=== PATIENT | male | born 1965 | race Caucasian/White ===

== ENCOUNTER 2022-05-11 08:19 | Day surgery (SDC) | payer BC ==
[~2022-05-11 08:19] MED LIST: LIDOCAINE 1% (10MG/ML) FOR IV START INTRADERMA PRN
[2022-05-11 08:58] VITALS: RESP 16; TEMP 98.1
[2022-05-11] MEDS: LACTATED RINGERS 1,000 ML IV SCH ×2 (09:05→09:16)
[2022-05-11] MEDS ORDERED: PROPOFOL 10 MG/ML 20 ML VIAL IV ONE (09:17)
[2022-05-11] MEDS ORDERED: LIDOCAINE 2% INJ 20 MG/ML (2 ML VIAL) ONE (09:17)
--- NOTE | 2022-05-11 09:22 | P.GSHP ---
History of Present Illness H&P Date: 05/11/22 Chief Complaint: Screening colonoscopy This a 56-year-old male presents today for screening colonoscopy. He denies a significant GI complaints Past Medical History Past Medical History: Osteoarthritis (OA) History of Any Multi-Drug Resistant Organisms: None Reported Past Surgical History: Orthopedic Surgery Additional Past Surgical History / Comment(s): left knee fx with hardware implants Past Anesthesia/Blood Transfusion Reactions: No Reported Reaction Smoking Status: Current every day smoker Medications and Allergies Home Medications Medication Instructions Recorded Confirmed Type Ibuprofen [Advil] 200 mg PO Q8HR PRN 05/09/22 05/09/22 History Allergies Allergy/AdvReac Type Severity Reaction Status Date / Time cephalexin [From Keflex] Allergy Rash/Hives Verified 05/11/22 08:52 Surgical - Exam Vital Signs Temp Pulse Resp BP Pulse Ox 98.1 F 61 16 191/94 98 05/11/22 08:57 05/11/22 08:57 05/11/22 08:57 05/11/22 08:57 05/11/22 08:57 - General well developed, well nourished, no distress - Eyes PERRL - ENT normal pinna - Neck no masses - Respiratory normal expansion - Cardiovascular Rhythm: regular - Abdomen Abdomen: soft, non tender Assessment and Plan Assessment: We'll perform screening colonoscopy
--- NOTE | 2022-05-11 09:37 | P.OP ---
Date of Procedure: 05/11/22 Preoperative Diagnosis: Screening colonoscopy Postoperative Diagnosis: Cecal polyp Procedure(s) Performed: Colonoscopy Anesthesia: MAC Surgeon: Gurmeet Hurtado Pathology: other (Polyp) Condition: stable Disposition: PACU Description of Procedure: The patient's placed on the endoscopy table in the lateral position. He received IV sedation. Digital rectal exam was performed. This revealed no abnormalities. The flexible colonoscope was then placed the patient's anus and passed throughout the entire colon. The ileocecal valve was visualized. The cecum was examined and there was a peduncular polyp. This is removed with snare. The remainder the ascending colon, transverse colon and descending colon appeared normal. The sigmoid colon and rectum appeared normal. Scope withdrawn for patient.
[2022-05-11] MEDS ORDERED: hydrALAZINE HCL 20 MG/ML 1 ML VIAL ONE (10:17)
[2022-05-11] MEDS: hydrALAZINE HCL 20 MG/ML 1 ML VIAL IVP ONE ×2 (10:20→10:31)
[2022-05-11 10:49] VITALS: BP 163/80; PULSE 65
== END 2022-05-11 11:02 | disposition home or self-care (01) ==
LOC: ORWHC2ENDO 08:19
PROVIDERS: ATTEND Surgery
DX: Z12.11 Encounter for screening for malignant neoplasm of colon (principal); D12.0 Benign neoplasm of cecum; M19.90 Unspecified osteoarthritis, unspecified site; F17.200 Nicotine dependence, unspecified, uncomplicated; Z79.1 Long term (current) use of non-steroidal anti-inflammatories (NSAID); Z88.1 Allergy status to other antibiotic agents
CPT/HCPCS: 88305; 45385; J0360; J2704; J2001